=== PATIENT | female | born 1945 | race Caucasian/White ===

== ENCOUNTER → 2024-09-17 13:26 | Outpatient (REF) | payer OTHER, SELFPAY | LOC: RAD 13:26 | PROVIDERS: ATTENDING PHYSICIAN Internal Medicine Geriatric Medicine | DX: I87.2 Venous insufficiency (chronic) (peripheral) (principal); R60.0 Localized edema; M79.89 Other specified soft tissue disorders | CPT/HCPCS: 93971 ==

== ENCOUNTER → 2024-11-29 08:53 | Outpatient (REF) | payer OTHER, SELFPAY | LOC: HWRAD 08:53 | PROVIDERS: ATTENDING PHYSICIAN Physician Assistant; FAMILY PHYSICIAN Internal Medicine Geriatric Medicine | DX: M81.0 Age-related osteoporosis without current pathological fracture (principal) | CPT/HCPCS: 77080 ==

== ENCOUNTER → 2024-12-13 13:02 | Outpatient (REF) | payer OTHER, SELFPAY | LOC: PAVMRI 13:02 | PROVIDERS: ATTENDING PHYSICIAN Internal Medicine Geriatric Medicine; REFERRING PHYSICIAN Podiatrist Foot & Ankle Surgery | DX: I87.2 Venous insufficiency (chronic) (peripheral) (principal); R60.0 Localized edema; M79.89 Other specified soft tissue disorders | CPT/HCPCS: 73718 ==